=== PATIENT | female | born 1970 | race Caucasian/White ===

== ENCOUNTER → 2018-07-17 | Outpatient (CLI) | payer OTHER ==
[~2018-07-17] MED LIST: ACE3 PO; ALP25 PO; ASC500 PO; CLOB59LO4 TP; ECHI400C16 PO; ESTR1VAG6 VG; HYD2 PO; IBU200 PO; LEVO75TA68 PO; LEVO88TA42 PO; ZINC30TA5 PO; ZOL5 PO; [UNRECOGNIZED DRUG - OTHER] TOP
--- NOTE | 2018-07-17 14:42 | RADIOLOGY IMAGING REPORT ---
FACILITY: [facility] PATIENT NAME: CHINO BARFIELD : [id number] MR: [id number]: [id number] EXAM DATE: ORDERING PHYSICIAN: ZEYAD SALGADO TECHNOLOGIST: Estee Funk PROCEDURE:BILATERAL DIGITAL SCREENING MAMMOGRAM WITH CAD ASSISTED INTERPRETATION & 3D TOMOSYNTHESIS COMPARISON:Prior mammograms 10/02/16, 07/23/13, 05/18/12. INDICATIONS:SCREENING FINDINGS: Dense heterogeneous fibroglandular tissue is seen throughout the breasts. The parenchymal pattern has remained stable allowing for difference in mammographic technique & patient positioning. There is no evidence of malignant appearing mass, malignant appearing calcifications or other secondary sign of malignancy in either breast. DIAGNOSTIC CATEGORY 1--NEGATIVE. RECOMMENDATIONS: ROUTINE MAMMOGRAM AND CLINICAL EVALUATION. IMPRESSION: BIRADS 1: Negative. No significant abnormality is seen. Dictated by: Edith Doan M.D. on 07/17/2018 at 14:01 Transcribed by: FLIP on 07/17/2018 at 14:06 Approved by: Edith Doan M.D. on 07/17/2018 at 14:41 [facility]
== END ==
LOC: MAMO 04:32
PROVIDERS: ATTEND Obstetrics & Gynecology
DX: Z12.31 Encounter for screening mammogram for malignant neoplasm of breast (principal)
CPT/HCPCS: 77063; 77067

== ENCOUNTER 2019-05-16 22:55 | Emergency (ER) | payer SELFPAY ==
[2019-05-16 22:58] VITALS: BP 170/107
--- NOTE | 2019-05-16 23:04 | ER Report ---
History and Physical Time Seen By MD: 22:52 Hx. of Stated Complaint: DOG BITE TO THE RIGHT HAND; PATIENT STATES THAT SHE KNOWS THAT DOG HPI/ROS CHIEF COMPLAINT: dog bite HISTORY OF PRESENT ILLNESS: This is a 49 year old female. She has a dog bite to her right hand, palmar aspect, thenar web. Happened just before coming in. Friends dog was startled and nipped the hand. Small abrasion on the thumb as well. Cleaned with H2O2 prior to coming in. Patient unsure of last tetanus, thinks withing the last 10 years. Dog is up to date on shots and has been healthy. Normal sensation in thumb and fingers. Allergies: Coded Allergies: adhesive (Verified Allergy, Intermediate, REDNESS, 10/12/10) codeine (Verified Allergy, Intermediate, NAUSEA/VOMITING, 10/09/11) PT STATES CODEINE AND "PRODUCTS OF CODEINE" MAKE HER DIZZY, LIGHT HEADED, "LOOPY" AND NAUSEATED Sulfa (Sulfonamide Antibiotics) (Verified Allergy, Mild, 07/03/09) hydrocodone (Verified Allergy, Mild, 07/03/09) Uncoded Allergies: HAYFEVER (Allergy, Mild, UNKNOWN, 04/07/12) Home Meds Active Scripts Amoxicillin/Pot Clav 875-125 Mg Tab (AUGMENTIN 875-125 TABLET) 1 Each Tablet, 1 TAB PO Q12H, #20 TAB 0 Refills Prov:BRUNA KHAN MD 05/16/19 Reported Medications Estradiol (ESTRING) Unknown Strength Vag.ring, 1 EACH VG, VAG.RING 05/22/16 Clobetasol Propionate 0.05% Lotion (CLOBETASOL PROPIONATE 0.05% LOTION) Unknown Strength Lotion, 0 TP BID, BOT 05/22/16 Levothyroxine Sodium (Levothyroxine Sodium) 88 Mcg Tablet, 100 MCG PO DAILY, 0 Refills 10/07/11 Zolpidem Tartrate (Ambien) 5 Mg Tab, 5 MG PO QHS, 0 Refills 10/07/11 Alprazolam (Xanax) 0.25 Mg Tab, 0.25 MG PO QHS PRN, 0 Refills 10/07/11 Reviewed Nurses Notes: Yes Smoking Status: Former Smoker Hx Alcohol Use: Yes (OCCASIONALLY DRINKS) Constitutional Vital Sign - Last 24 Hours 7/21/19 22:58 Temp 98.7 Pulse 90 Resp 18 B/P (MAP) 170/107 Pulse Ox 96 O2 Delivery Room Air Physical Exam General: Alert, no distress. Skin: Has about 1.5cm laceration on palmar aspect of thenar web right hand, still with some bleeding, down to subcutaneous tissues. Musculoskeletal: Normal motor function and strength, no sign of tendon involvement. Neuro: Normal sensation. Cardiovascular: Normal cap refill and radial pulse. Medical Decision Making ED Course/Re-evaluation ED Course Procedure: wound cleaing and saceration repair Verbal consent from patient after discussing repair options, risks and benefits. Wound cleaned extensively with Hibiclens and saline. Anesthesia: Local 1% lidocaine without epinephrine, 0.5% bupivacaine without epinephrine. Location: At the area of laceration on the right palm. Length: About 1.5 cm. Character: Into subcutaneous tissue. There were no deep structures involved. No tendon injury was identified. Wound repair: One stitch loosely applied to allow the wound to drain it to prevent gaping. The wound repair was simple and performed by myself. Wound care instructions discussed. Sutures need to be removed in 7 days. Tetanus booster given. Augmentin 875/125 mg twice a day for 10 days Decision to Disposition Date: May 16, 2019 Decision to Disposition Time: 23:28 Depart Departure Latest Vital Signs Vital Signs Date Time Temp Pulse Resp B/P (MAP) Pulse Ox O2 Delivery O2 Flow Rate FiO2 05/16/19 22:58 98.7 90 18 170/107 96 Room Air Impression: Primary Impression: Dog bite Condition: Improved Disposition: HOME OR SELF-CARE Referrals: [facility] (PCP) New Scripts Amoxicillin/Pot Clav 875-125 Mg Tab (AUGMENTIN 875-125 TABLET) 1 Each Tablet 1 TAB PO Q12H, #20 TAB 0 Refills Prov: BRUNA KHAN MD 05/16/19 Patient Instructions: Animal Bite (ED) Additional Instructions: Wound Care: Wash the wound once a day with soap and water. Dry the wound and apply a small amount of antibiotic ointment with a clean dressing. If the dressing becomes wet or dirty, repeat cleaning and dressing as above. No soaking the wound; no swimming. Stitch needs to be removed in 7 days. Pain Control: Use Tylenol or ibuprofen for pain. Using and ice pack can help reduce swelling. Antibiotic: Augmentin 875/125 twice a day for 10 days. Problem Qualifiers Primary Impression: Dog bite Encounter type: initial encounter Qualified Codes: W54.0XXA - Bitten by dog, initial encounter BRUNA KHAN MD May 16, 2019 23:04
[2019-05-16] MEDS ORDERED: AMOX/CLAV 875 MG TAB PO ONE (23:30)
[2019-05-16] MEDS ORDERED: DIPHTH/TETANUS/ACEL. PERTUSSIS IM ONLY ONE (23:30)
[2019-05-16] MEDS ORDERED: AMOX-559 PO (23:32)
== END 2019-05-16 23:45 | disposition home or self-care (01) ==
LOC: ER 22:59
DX: S61.411A Laceration without foreign body of right hand, initial encounter (principal); W54.0XXA Bitten by dog, initial encounter
CPT/HCPCS: 90471; 90715; 99283